=== PATIENT | male | born 1980 | race Caucasian/White ===

== ENCOUNTER 2022-04-26 15:53 | Outpatient (CLI) | payer BC, SELFPAY ==
[2022-04-26 21:43] LABS: Albumin* 3.8 g/dL (3.3-5.0)
[2022-04-26 21:44] LABS: Chloride* 102 mmol/L (96-114); Potassium* 4.2 mmol/L (3.6-5.1); Sodium* 139 mmol/L (135-149)
[2022-04-26 21:46] LABS: Bilirubin Direct* 0.2 mg/dL (0.0-0.5); Bilirubin Total* 0.2 mg/dL (0.1-1.5); Carbon Dioxide* 30 mmol/L (20-32); Estimated Glomerular Filt Rate 98 ml/min
[2022-04-26 21:47] LABS: Alanine Aminotransferase* 14 U/L (4-50); Alkaline Phosphatase* 35 U/L (40-150); Aspartate Amino Transferase* 24 U/L (12-35); Blood Urea Nitrogen* 7 mg/dL (5-24); Calcium* 8.7 mg/dL (8.4-10.6); Glucose* 98 mg/dL (60-115); Total Protein* 6.2 g/dL (6.0-8.3)
[2022-04-26 22:23] LABS: Ferritin* 9.3 ng/mL (17.9-464.0)
== END 2022-04-26 15:54 | disposition home or self-care (01) ==
PROVIDERS: PCP Physician Assistant Medical; Visit Provider Emergency Medicine
DX: Z00.00 Encounter for general adult medical examination without abnormal findings; R53.81 Other malaise; R79.0 Abnormal level of blood mineral; R19.7 Diarrhea, unspecified
CPT/HCPCS: 80048; 80076; 82728; 87493

== ENCOUNTER 2022-04-27 12:06 | Outpatient (CLI) | payer BC, SELFPAY | END 2022-04-27 12:07 | disposition home or self-care (01) | LOC: LKVREF 05-01 15:23 | PROVIDERS: PCP Physician Assistant Medical; Visit Provider Emergency Medicine | DX: R19.7 Diarrhea, unspecified (principal) | CPT/HCPCS: 87493; 87505 ==

== ENCOUNTER 2022-05-11 16:29 | Outpatient (CLI) | payer BC, SELFPAY ==
[2022-05-11 22:17] LABS: Vitamin B12* 343 pg/mL (243-894)
== END 2022-05-11 16:30 | disposition home or self-care (01) ==
LOC: LKVREF 16:30
PROVIDERS: PCP Physician Assistant Medical; Visit Provider Emergency Medicine
DX: F10.11 Alcohol abuse, in remission (principal); K62.5 Hemorrhage of anus and rectum; R19.7 Diarrhea, unspecified
CPT/HCPCS: 82607

== ENCOUNTER 2023-08-07 08:00 | Outpatient (CLI) | payer OTHER, SELFPAY | END 2023-08-07 08:01 | disposition home or self-care (01) | LOC: NFLDREF 08-09 06:37 | PROVIDERS: PCP Emergency Medicine; Referring Provider Emergency Medicine; Visit Provider Emergency Medicine | DX: D50.9 Iron deficiency anemia, unspecified (principal); R53.83 Other fatigue; Z13.220 Encounter for screening for lipoid disorders; Z13.1 Encounter for screening for diabetes mellitus; R79.89 Other specified abnormal findings of blood chemistry | CPT/HCPCS: 80061; 82607; 82728; 82947; 84443 ==

== ENCOUNTER 2023-12-26 09:32 | Outpatient (CLI) | payer OTHER, SELFPAY | END 2023-12-26 09:33 | disposition home or self-care (01) | LOC: NFLDREF 01-07 07:02 | PROVIDERS: PCP Emergency Medicine; Referring Provider Emergency Medicine; Visit Provider Physician Assistant | DX: R19.7 Diarrhea, unspecified (principal) | CPT/HCPCS: 87493 ==

== ENCOUNTER 2025-01-08 08:49 | Outpatient (CLI) | payer OTHER, SELFPAY | END 2025-01-08 08:50 | disposition home or self-care (01) | PROVIDERS: PCP Emergency Medicine; Visit Provider Emergency Medicine | DX: D50.9 Iron deficiency anemia, unspecified (principal); I10 Essential (primary) hypertension; E53.8 Deficiency of other specified B group vitamins | CPT/HCPCS: 80048; 80061; 82607; 82728 ==

== ENCOUNTER 2025-01-29 07:57 | Outpatient (CLI) | payer OTHER, SELFPAY | END 2025-01-29 07:58 | disposition home or self-care (01) | LOC: NFLDREF 02-03 08:01 | PROVIDERS: PCP Emergency Medicine; Referring Provider Emergency Medicine; Visit Provider Emergency Medicine | DX: E53.8 Deficiency of other specified B group vitamins (principal); D50.8 Other iron deficiency anemias; Z13.810 Encounter for screening for upper gastrointestinal disorder | CPT/HCPCS: 82746; 82784; 83090; 86231; 86258; 86364 ==